=== PATIENT | male | born 1975 | race Caucasian/White ===

== ENCOUNTER 2021-12-29 20:58 | Emergency (ER) | payer BC ==
--- OUTSIDE RECORDS SUMMARY | 2021-12-29 21:03 | XMS REPORT | Continuity of Care Document ---
:1975 Author Organization [facility] t Address [address] [place] [address] Care Team Providers Name Role Phone MAHONEY Attending Clinician Unavailable FREDO Attending Clinician Unavailable Mahoney MD Attending Clinician SAGRARIO Attending Clinician Unavailable CUNNINGHAM Attending Clinician Unavailable Cunningham OD Attending Clinician Doctor Unassigned, Name Attending Clinician Unavailable 2, Lab Attending Clinician Unavailable Fredo RD Attending Clinician RAMSES HAM Attending Clinician Unavailable Barby BURRELL Attending Clinician Unavailable RAMSES HAM Admitting Clinician Unavailable Payers Payer Name Policy Type Policy Number Effective Date Expiration Date S dexter [facility] [id number] 2017 00:00:00 Problems Condition Condition Condition Status Onset Resolution Last Treating Co mments Source Name Details Category Date Date Treatment Clinician Date Problem No known ASSERTION [facility] Allergies, Adverse Reactions, Alerts Allergy Allergy Status Severity Reaction(s) Onset Inactive Treating Comm ents Source Name Type Date Date Clinician NO KNOWN Drug Active Univers ALLERGIE Class ity of [facility] Social History Social Habit Start Date Stop Date Quantity Comments Source Sex Assigned At [facility] Exposure to Not sure University of SARS-CoV-2 [facility] (event) Branch Alcohol intake 2020-07-03 2020-07-03 Current drinker Unive rsity of 00:00:00 00:00:00 of alcohol [facility] (finding) Branch Smoking Status Start Date Stop Date Source Unknown if ever smoked [facility] Former smoker 2020-07-03 00:00:00 2020-07-03 00:00:00 [facility] Medical Branch Medications Ordered Filled Start Stop Current Ordering Indication Dosage Frequency Signature Comments Components Source Medication Medication Date Date Medication? Clinician (SIG) Name Name insulin 2019-11 Yes [id number] 40U inject 40 U nivers degludec 0-14 Units ity of ([place] skin every Medi emilie U-200) 200 morning. Branc h unit/mL (3 mL) InPn insulin 2019-11 Yes [id number] 5U inject Univ ers lispro 100 0-14 5-10 Units ity of unit/mL pen 00:00: [place] the [place] injector 00 skin 3 Medical (three) Branch times daily before meals. metFORMIN 2019-11 Yes [id number] 1000mg Take 1 Univers 1,000 mg 0-14 tablet by ity of tablet 00:00: mouth 2 [place] (two) Medical times Branch daily with meals. FREESTYLE 2019-11 Yes [id number] 1{each} 1 Each Univers VÍCTOR 2 0-14 every 14 ity of SENSOR Kit 00:00: ([place]teen) [place] days. [place] flash 2019-11 Yes [id number] 1{each} 1 Each Uni vers glucose 0-14 daily. ity of scanning 00:00: [place] reader 00 Medical ([facility] Branch VÍCTOR 2 READER) Misc insulin 2019-11 Yes [id number] 40U inject 40 U nivers degludec 0-14 Units ity of ([place]LE[place] skin every Medi emilie U-200) 200 morning. Branc h unit/mL (3 mL) InPn insulin 2019-11 Yes [id number] 5U inject Univ ers lispro 100 0-14 5-10 Units ity of unit/mL pen 00:00: under the [place] injector 00 skin 3 Medical (three) Branch times daily before meals. metFORMIN 2019-11 Yes [id number] 1000mg Take 1 Univers 1,000 mg 0-14 tablet by ity of tablet 00:00: mouth 2 (two) Medical times Branch daily with meals. FREESTYLE 2019-11 Yes [id number] 1{each} 1 Each Univers VÍCTOR 2 0-14 every 14 ity of SENSOR Kit 00:00: ([place]teen) [place] days. [place] flash 2020- Yes [id number] 1{each} 1 Each Uni vers glucose 0-14 daily. ity of scanning 00:00: [place] reader 00 Medical (FREESTYLE Branch VÍCTOR 2 READER) Misc Fenofibrate 2020-0 Yes 1{tbl} Take 1 Un kay 160 mg 9-16 tablet by ity of tablet 00:00: mouth [place] 00 daily. Medical Branch Fenofibrate 2020-0 Yes 1{tbl} Take 1 Un kay 160 mg 9-16 tablet by ity of tablet 00:00: mouth [place] 00 daily. Medical Branch insulin NPH 2019-0 2020- No 40U inject 40 Univers and regular 6-17 06-17 Units ity of human 70-30 17:21: 00:00 under the [place] 100 unit/mL 09 :00 skin every Me dical (70-30) morning Branch injection and evening. insulin NPH 2019-0 2020- No 40U inject 40 Univers and regular 6-17 06-17 Units ity of human 70-30 17:21: 00:00 under the [place] 100 unit/mL 09 :00 skin every Me dical (70-30) morning Branch injection and evening. insulin NPH 2019-0 2020- No 40U inject 40 Univers and regular 6-17 06-17 Units ity of human 70-30 17:21: 00:00 under the [place] [employer] 100 unit/mL 09 :00 skin every Me dical (70-30) morning Branch injection and evening. insulin 2019-0 Yes [id number] 40U inject 40 U nivers degludec 6-17 Units ity of ([place] 00:[place]: [place] FLEXT[place] skin every Medi emilie U-200) 200 morning. Branc h unit/mL (3 mL) InPn insulin 2019-0 Yes [id number] 5U inject Univ ers lispro 100 6-17 5-10 Units ity of unit/mL pen 00:00: under the [place] injector 00 skin 3 Medical (three) Branch times daily before meals. flash 2020-0 Yes [id number] 1{kit} 1 Kit Unive rs glucose 6-17 every 14 ity of sensor 00:00: (fourteen) [place] (FREESTYLE 00 days. Medical VÍCTOR 14 Branch DAY SENSOR) Kit flash 2020-0 Yes [id number] 1{each} 1 Each Uni vers glucose 6-17 daily. ity of scanning 00:00: [place] reader 00 Medical (FREESTYLE Branch VÍCTOR 14 DAY READER) Misc insulin 2020-0 Yes [id number] 40U inject 40 U nivers degludec 6-17 Units ity of ([place]: [place] FLEXT[place] skin every Medi emilie U-200) 200 morning. Branc h unit/mL (3 mL) InPn insulin 2020-0 Yes [id number] 5U inject Univ ers lispro 100 6-17 5-10 Units ity of unit/mL pen 00:00: under the [place] injector 00 skin 3 Medical (three) Branch times daily before meals. flash 2020-0 Yes [id number] 1{kit} 1 Kit Unive rs glucose 6-17 every 14 ity of sensor 00:00: (fourteen) [place] (FREESTYLE 00 days. Medical VÍCTOR 14 Branch DAY SENSOR) Kit flash 2020-0 Yes [id number] 1{each} 1 Each Uni vers glucose 6-17 daily. ity of scanning 00:00: [place] reader 00 Medical (FREESTYLE Branch VÍCTOR 14 DAY READER) Misc insulin 2020-0 Yes [id number] 40U inject 40 U nivers degludec 6-17 Units ity of ([place] 00:[place]: [place] FLEXT[place] skin every Medi emilie U-200) 200 morning. Branc h unit/mL (3 mL) InPn insulin 2020-0 Yes [id number] 5U inject Univ ers lispro 100 6-17 5-10 Units ity of unit/mL pen 00:00: under the [place] injector 00 skin 3 Medical (three) Branch times daily before meals. flash 2020-0 Yes [id number] 1{kit} 1 Kit Unive rs glucose 6-17 every 14 ity of sensor 00:00: (fourteen) (FREESTYLE 00 days. Medical VÍCTOR 14 Branch DAY SENSOR) Kit flash 2020-0 Yes [id number] 1{each} 1 Each Uni vers glucose 6-17 daily. ity of scanning 00:00: [place] reader 00 Medical (FREESTYLE Branch VÍCTOR 14 DAY READER) Misc insulin 2020-0 Yes [id number] 40U inject 40 U nivers degludec 6-17 Units ity of ([place] 00:[place]: [place] FLEXT[place] skin every Medi emilie U-200) 200 morning. Branc h unit/mL (3 mL) InPn insulin 2020-0 Yes [id number] 5U inject Univ ers lispro 100 6-17 5-10 Units ity of unit/mL pen 00:00: under the [place] injector 00 skin 3 Medical (three) Branch times daily before meals. flash 2020-0 Yes [id number] 1{kit} 1 Kit Unive rs glucose 6-17 every 14 ity of sensor 00:00: () (FREESTYLE 00 days. Medical VÍCTOR 14 Branch DAY SENSOR) Kit flash 2020-0 Yes [id number] 1{each} 1 Each Uni vers glucose 6-17 daily. ity of scanning 00:00: [place] reader 00 Medical (FREESTYLE Branch VÍCTOR 14 DAY READER) Misc insulin 2020-0 Yes [id number] 40U inject 40 U nivers degludec 6-17 Units ity of ([place]ES[place] 00:00: [place] FLEXTOU[place] skin every Medi emilie U-200) 200 morning. Branc h unit/mL (3 mL) InPn insulin 2020-0 Yes [id number] 5U inject Univ ers lispro 100 6-17 5-10 Units ity of unit/mL pen 00:00: under the [place] injector 00 skin 3 Medical (three) Branch times daily before meals. flash 2020-0 Yes [id number] 1{kit} 1 Kit Unive rs glucose 6-17 every 14 ity of sensor 00:00: () (FREESTYLE 00 days. Medical VÍCTOR 14 Branch DAY SENSOR) Kit flash 2020-0 Yes [id number] 1{each} 1 Each Uni vers glucose 6-17 daily. ity of scanning 00:00: [place] reader 00 Medical (FREESTYLE Branch VÍCTOR 14 DAY READER) Misc insulin 2020-0 Yes [id number] 40U inject 40 U nivers degludec 6-17 Units ity of (TRESIBA 00:[place]: [place]LE[place] 00 skin every Medi emilie U-200) 200 morning. Branc h unit/mL (3 mL) InPn insulin 2020-0 Yes [id number] 5U inject Univ ers lispro 100 6-17 5-10 Units ity of unit/mL pen 00:00: under the [place] injector 00 skin 3 Medical (three) Branch times daily before meals. insulin 2020-0 Yes [id number] 40U inject 40 U nivers degludec 6-17 Units ity of (TRESIBA 00:00: [place]LE[place] 00 skin every Medi emilie U-200) 200 morning. Branc h unit/mL (3 mL) InPn flash 2020-0 Yes [id number] 1{kit} 1 Kit Unive rs glucose 6-17 every 14 ity of sensor 00:00: (fourteen) [place] (FREESTYLE 00 days. Medical VÍCTOR 14 Branch DAY SENSOR) Kit flash 2020-0 Yes [id number] 1{each} 1 Each Uni vers glucose 6-17 daily. ity of scanning 00:00: [place] reader 00 Medical (FREESTYLE Branch VÍCTOR 14 DAY READER) [facility] insulin 2020-0 Yes [id number] 5U inject Univ ers lispro 100 6-17 5-10 Units ity of unit/mL pen 00:00: under the [place] injector 00 skin 3 Medical (three) Branch times daily before meals. insulin 2020-0 Yes [id number] 40U inject 40 U nivers degludec 6-17 Units ity of (TRESIBA 00:00: [place] FLEXTOU[place] 00 skin every Medi emilie U-200) 200 morning. Branc h unit/mL (3 mL) InPn insulin 2020-0 Yes [id number] 5U inject Univ ers lispro 100 6-17 5-10 Units ity of unit/mL pen 00:00: under the [place] injector 00 skin 3 Medical (three) Branch times daily before meals. flash 2020-0 Yes [id number] 1{kit} 1 Kit Unive rs glucose 6-17 every 14 ity of sensor 00:00: (fourteen) [place] (FREESTYLE 00 days. Medical VÍCTOR 14 Branch DAY SENSOR) Kit flash 2020-0 Yes [id number] 1{each} 1 Each Uni vers glucose 6-17 daily. ity of scanning 00:00: [place] reader 00 Medical (FREESTYLE Branch VÍCTOR 14 DAY READER) Misc flash 2020-0 Yes [id number] 1{kit} 1 Kit Unive rs glucose 6-17 every 14 ity of sensor 00:00: (fourteen) [place] (FREESTYLE 00 days. Medical VÍCTOR 14 Branch DAY SENSOR) Kit flash 2020-0 Yes [id number] 1{each} 1 Each Uni vers glucose 6-17 daily. ity of scanning 00:00: [place] reader 00 Medical (FREESTYLE Branch VÍCTOR 14 DAY READER) Misc insulin 2020-0 Yes [id number] 40U inject 40 U nivers degludec 6-17 Units ity of (TRESIBA 00:00: [place] FLEXTOUCH 00 skin every Medi emilie U-200) 200 morning. Branc h unit/mL (3 mL) InPn insulin 2020-0 Yes [id number] 5U inject Univ ers lispro 100 6-17 5-10 Units ity of unit/mL pen 00:00: under the [place] injector 00 skin 3 Medical (three) Branch times daily before meals. flash 2020-0 Yes [id number] 1{kit} 1 Kit Unive rs glucose 6-17 every 14 ity of sensor 00:00: () [place] (FREESTYLE . Medical VÍCTOR 14 Branch DAY SENSOR) Kit flash 2020-0 Yes [id number] 1{each} 1 Each Uni vers glucose 6-17 daily. ity of scanning 00:00: [place] reader 00 Medical (FREESTYLE Branch VÍCTOR 14 DAY READER) Misc insulin 2020-0 Yes [id number] 40U inject 40 U nivers degludec 6-17 Units ity of (TRESIBA 00:00: [place] FLEXTOUCH 00 skin every Medi emilie U-200) 200 morning. Branc h unit/mL (3 mL) InPn insulin 2020-0 Yes [id number] 5U inject Univ ers lispro 100 6-17 5-10 Units ity of unit/mL pen 00:00: under the [place] injector 00 skin 3 Medical (three) Branch times daily before meals. flash 2020-0 Yes [id number] 1{kit} 1 Kit Unive rs glucose 6-17 every 14 ity of sensor 00:00: () [place] (FREESTYLE 00 days. Medical VÍCTOR 14 Branch DAY SENSOR) Kit flash 2020-0 Yes [id number] 1{each} 1 Each Uni vers glucose 6-17 daily. ity of scanning 00:00: [place] reader 00 Medical (FREESTYLE Branch VÍCTOR 14 DAY READER) Misc insulin 2020-0 Yes [id number] 40U inject 40 U nivers degludec 6-17 Units ity of (TRESIBA 00:00: [place] FLEXTOU[place] 00 skin every Medi emilie U-200) 200 morning. Branc h unit/mL (3 mL) InPn insulin 2020-0 Yes [id number] 5U inject Univ ers lispro 100 6-17 5-10 Units ity of unit/mL pen 00:00: under the [place] injector 00 skin 3 Medical (three) Branch times daily before meals. flash 2020-0 Yes [id number] 1{kit} 1 Kit Unive rs glucose 6-17 every 14 ity of sensor 00:00: (fourteen) (FREESTYLE 00 days. Medical VÍCTOR 14 Branch DAY SENSOR) Kit flash 2020-0 Yes [id number] 1{each} 1 Each Uni vers glucose 6-17 daily. ity of scanning 00:00: [place] reader 00 Medical (FREESTYLE Branch VÍCTOR 14 DAY READER) Misc insulin 2020-0 Yes [id number] 40U inject 40 U nivers degludec 6-17 Units ity of (TRES[place]A 00:00: [place] FLEXTOUCH 00 skin every Medi emilie U-200) 200 morning. Branc h unit/mL (3 mL) InPn insulin 2020-0 Yes [id number] 5U inject Univ ers lispro 100 6-17 5-10 Units ity of unit/mL pen 00:00: under the [place] injector 00 skin 3 Medical (three) Branch times daily before meals. flash 2020-0 Yes [id number] 1{kit} 1 Kit Unive rs glucose 6-17 every 14 ity of sensor 00:00: (fourteen) (FREESTYLE 00 days. Medical VÍCTOR 14 Branch DAY SENSOR) Kit flash 2020-0 Yes [id number] 1{each} 1 Each Uni vers glucose 6-17 daily. ity of scanning 00:00: [place] reader 00 Medical (FREESTYLE Branch VÍCTOR 14 DAY READER) Misc insulin 2020-0 2020- No [id number] 40U inject 40 Univers degludec 6-17 10-14 Units ity of (TRESIBA 00:00: 00:00 under the [place] as FLEXTOUCH 00 :00 skin every Medi emilie U-200) 200 morning. Branc h unit/mL (3 mL) InPn insulin 2020-0 2020- No [id number] 5U inject Uni vers lispro 100 6-17 10-14 5-10 Units it y of unit/mL pen 00:00: 00:00 under the [place] injector 00 :00 skin 3 Medical (three) Branch times daily before meals. flash 2019- 2020- No [id number] 1{kit} 1 Kit Univ ers glucose 6-17 10-14 every 14 ity of sensor 00:00: [place] ([place]teen[place] (FREEST[place] 00 :00 days. Medical VÍCTOR 14 Branch DAY SENSOR) Kit flash 2019-0 2020- No [id number] 1{each} 1 Each Un kay glucose 6-17 10-14 daily. ity of scanning 00:00: 00:00 [place] reader 00 :00 Medical (FREESTYLE Branch VÍCTOR 14 DAY READER) [place] insulin 2020-0 2020- No [id number] 40U inject 40 Univers degludec 6-17 10-14 Units ity of (TRESIBA 00:00: 00:00 under the [place] as FLEXTOUCH 00 :00 skin every Medi emilie U-200) 200 morning. Branc h unit/mL (3 mL) InPn insulin 2019-0 2020- No [id number] 5U inject Uni vers lispro 100 6-17 10-14 5-10 Units it y of unit/mL pen 00:00: 00:00 under the [place] injector 00 :00 skin 3 Medical (three) Branch times daily before meals. flash 2019- 2020- No [id number] 1{kit} 1 Kit Univ ers glucose 6-17 10-14 every 14 ity of sensor 00:00: 00:[place] ([place]teen[place] (FREESTYLE 00 :00 days. Medical VÍCTOR 14 Branch DAY SENSOR) Kit flash 2020-0 2020- No [id number] 1{each} 1 Each Un kay glucose 6-17 10-14 daily. ity of scanning 00:00: 00:00 [place] reader 00 :00 Medical (FREESTYLE Branch VÍCTOR 14 DAY READER) Misc clopidogreL 2020-0 Yes Univer s 75 mg 6-07 ity of tablet 00:00: [place] 00 Medical Branch clopidogreL 2020-0 Yes Univer s 75 mg 6-07 ity of tablet 00:00: [place] 00 Medical Branch clopidogreL 2020-0 Yes Univer s 75 mg 6-07 ity of tablet 00:00: [place] [address] Medical Branch clopidogreL 2020-0 Yes Univer s 75 mg 6-07 ity of tablet 00:00: [place] [address] Medical Branch clopidogreL 2020-0 Yes Univer s 75 mg 6-07 ity of tablet 00:00: [place] [address] Medical Branch clopidogreL 2020-0 Yes Univer s 75 mg 6-07 ity of tablet 00:00: [place] [address] Medical Branch clopidogreL 2020-0 Yes Univer s 75 mg 6-07 ity of tablet 00:00: [place] [address] Medical Branch clopidogreL 2020-0 Yes Univer s 75 mg 6-07 ity of tablet 00:00: [place] [address] Medical Branch clopidogreL 2020-0 Yes Univer s 75 mg 6-07 ity of tablet 00:00: [place] [address] Medical Branch clopidogreL 2020-0 Yes Univer s 75 mg 6-07 ity of tablet 00:00: [place] [address] Medical Branch clopidogreL 2020-0 Yes Univer s 75 mg 6-07 ity of tablet 00:00: [place] [address] Medical Branch clopidogreL 2020-0 Yes Univer s 75 mg 6-07 ity of tablet 00:00: [place] [address] Medical Branch clopidogreL 2020-0 Yes Univer s 75 mg 6-07 ity of tablet 00:00: [place] [address] Medical Branch clopidogreL 2020-0 Yes Univer s 75 mg 6-07 ity of tablet 00:00: [place] [address] Medical Branch metoprolol 2020-0 Yes TAKE 1 2 Uni vers tartrate 25 5-22 (ONE HALF) it y of mg tablet 00:00: TABLET BY as MOUTH Medical EVERY 12 Branch HOURS FOR 30 DAYS metoprolol 2020-0 Yes TAKE 1 2 Uni vers tartrate 25 5-22 (ONE HALF) it y of mg tablet 00:00: TABLET BY [place] as MOUTH Medical EVERY 12 Branch HOURS FOR 30 DAYS metoprolol 2020-0 Yes TAKE 1 2 Uni vers tartrate 25 5-22 (ONE HALF) it y of mg tablet 00:00: TABLET BY [place] as MOUTH Medical EVERY 12 Branch HOURS FOR 30 DAYS metoprolol 2020-0 Yes TAKE 1 2 Uni vers tartrate 25 5-22 (ONE HALF) it y of mg tablet 00:00: TABLET BY as MOUTH Medical EVERY 12 Branch HOURS FOR 30 DAYS metoprolol 2020-0 Yes TAKE 1 2 Uni vers tartrate 25 5-22 (ONE HALF) it y of mg tablet 00:00: TABLET BY as MOUTH Medical EVERY 12 Branch HOURS FOR 30 DAYS metoprolol 2020-0 Yes TAKE 1 2 Uni vers tartrate 25 5-22 (ONE HALF) it y of mg tablet 00:00: TABLET BY as MOUTH Medical EVERY 12 Branch HOURS FOR 30 DAYS metoprolol 2020-0 Yes TAKE 1 2 Uni vers tartrate 25 5-22 (ONE HALF) it y of mg tablet 00:00: TABLET BY as MOUTH Medical EVERY 12 Branch HOURS FOR 30 DAYS metoprolol 2020-0 Yes TAKE 1 2 Uni vers tartrate 25 5-22 (ONE HALF) it y of mg tablet 00:00: TABLET BY as MOUTH Medical EVERY 12 Branch HOURS FOR 30 DAYS metoprolol 2020-0 Yes TAKE 1 2 Uni vers tartrate 25 5-22 (ONE HALF) it y of mg tablet 00:00: TABLET BY as MOUTH Medical EVERY 12 Branch HOURS FOR 30 DAYS metoprolol 2020-0 Yes TAKE 1 2 Uni vers tartrate 25 5-22 (ONE HALF) it y of mg tablet 00:00: TABLET BY as MOUTH Medical EVERY 12 Branch HOURS FOR 30 DAYS metoprolol 2020-0 Yes TAKE 1 2 Uni vers tartrate 25 5-22 (ONE HALF) it y of mg tablet 00:00: TABLET BY as MOUTH Medical EVERY 12 Branch HOURS FOR 30 DAYS metoprolol 2020-0 Yes TAKE 1 2 Uni vers tartrate 25 5-22 (ONE HALF) it y of mg tablet 00:00: TABLET BY as MOUTH Medical EVERY 12 Branch HOURS FOR 30 DAYS metoprolol 2020-0 Yes TAKE 1 2 Uni vers tartrate 25 5-22 (ONE HALF) it y of mg tablet 00:00: TABLET BY as MOUTH Medical EVERY 12 Branch HOURS FOR 30 DAYS metoprolol 2020-0 Yes TAKE 1 2 Uni vers tartrate 25 5-22 (ONE HALF) it y of mg tablet 00:00: TABLET BY as MOUTH Medical EVERY 12 Branch HOURS FOR 30 DAYS SYNJARDY 2019-0 Yes 1{tbl} Take 1 Unive rs 12.5-1,000 5-18 tablet by ity of mg Tab 00:00: mouth 2 (two) Medical times Branch daily. omeprazole 2020-0 Yes TAKE 1 Unive rs 20 mg 5-18 CAPSULE BY ity of capsule 00:00: MOUTH [place]CE [place] 00 DAILY DO Medical NOT CRUSH Branch CAPSULE SYNJARDY 2020-0 Yes 1{tbl} Take 1 Unive rs 12.5-1,000 5-18 tablet by ity of mg Tab 00:00: mouth 2 (two) Medical times Branch daily. SYNJARDY 2020-0 Yes 1{tbl} Take 1 Unive rs 12.5-1,000 5-18 tablet by ity of mg Tab 00:00: mouth 2 (two) Medical times Branch daily. omeprazole 2020-0 Yes TAKE 1 Unive rs 20 mg 5-18 CAPSULE BY ity of capsule 00:00: MOUTH ONCE [place] 00 DAILY DO Medical NOT CRUSH Branch CAPSULE SYNJARDY 2020-0 Yes 1{tbl} Take 1 Unive rs 12.5-1,000 5-18 tablet by ity of mg Tab 00:00: mouth 2 (two) Medical times Branch daily. omeprazole 2020-0 Yes TAKE 1 Unive rs 20 mg 5-18 CAPSULE BY ity of capsule 00:00: MOUTH ONCE [place] 00 DAILY DO Medical NOT CRUSH Branch CAPSULE SYNJARDY 2020-0 Yes 1{tbl} Take 1 Unive rs 12.5-1,000 5-18 tablet by ity of mg Tab 00:00: mouth 2 (two) Medical times Branch daily. omeprazole 2020-0 Yes TAKE 1 Unive rs 20 mg 5-18 CAPSULE BY ity of capsule 00:00: MOUTH ONCE [place] 00 DAILY DO Medical NOT CRUSH Branch CAPSULE SYNJARDY 2020-0 Yes 1{tbl} Take 1 Unive rs 12.5-1,000 5-18 tablet by ity of mg Tab 00:00: mouth 2 (two) Medical times Branch daily. omeprazole 2020-0 Yes TAKE 1 Unive rs 20 mg 5-18 CAPSULE BY ity of capsule 00:00: MOUTH ONCE [place] 00 DAILY DO Medical NOT CRUSH Branch CAPSULE omeprazole 2020-0 Yes TAKE 1 Unive rs 20 mg 5-18 CAPSULE BY ity of capsule 00:00: MOUTH ONCE [place] 00 DAILY DO Medical NOT CRUSH Branch CAPSULE SYNJARDY 2020-0 Yes 1{tbl} Take 1 Unive rs 12.5-1,000 5-18 tablet by ity of mg Tab 00:00: mouth 2 (two) Medical times Branch daily. omeprazole 2020-0 Yes TAKE 1 Unive rs 20 mg 5-18 CAPSULE BY ity of capsule 00:00: MOUTH ONCE [place] 00 DAILY DO Medical NOT CRUSH Branch CAPSULE SYNJARDY 2020-0 Yes 1{tbl} Take 1 Unive rs 12.5-1,000 5-18 tablet by ity of mg Tab 00:00: mouth 2 (two) Medical times Branch daily. omeprazole 2020-0 Yes TAKE 1 Unive rs 20 mg 5-18 CAPSULE BY ity of capsule 00:00: MOUTH ONCE [place] 00 DAILY DO Medical NOT CRUSH Branch CAPSULE omeprazole 2020-0 Yes TAKE 1 Unive rs 20 mg 5-18 CAPSULE BY ity of capsule 00:00: MOUTH ONCE [place] DAILY DO Medical NOT CRUSH Branch CAPSULE omeprazole 2020-0 Yes TAKE 1 Unive rs 20 mg 5-18 CAPSULE BY ity of capsule 00:00: MOUTH ONCE [place] 00 DAILY DO Medical NOT CRUSH Branch CAPSULE SYNJARDY 2020-0 Yes 1{tbl} Take 1 Unive rs 12.5-1,000 5-18 tablet by ity of mg Tab 00:00: mouth 2 (two) Medical times Branch daily. omeprazole 2020-0 Yes TAKE 1 Unive rs 20 mg 5-18 CAPSULE BY ity of capsule 00:00: MOUTH ONCE [place] 00 DAILY DO Medical NOT CRUSH Branch CAPSULE SYNJARDY 2020-0 Yes 1{tbl} Take 1 Unive rs 12.5-1,000 5-18 tablet by ity of mg Tab 00:00: mouth 2 (two) Medical times Branch daily. omeprazole 2020-0 Yes TAKE 1 Unive rs 20 mg 5-18 CAPSULE BY ity of capsule 00:00: MOUTH ONCE [place] 00 DAILY DO Medical NOT CRUSH Branch CAPSULE SYNJARDY 2020-0 Yes 1{tbl} Take 1 Unive rs 12.5-1,000 5-18 tablet by ity of mg Tab 00:00: mouth 2 (two) Medical times Branch daily. omeprazole 2020-0 Yes TAKE 1 Unive rs 20 mg 5-18 CAPSULE BY ity of capsule 00:00: MOUTH ONCE [place] 00 DAILY DO Medical NOT CRUSH Branch CAPSULE SYNJARDY 2020-0 Yes 1{tbl} Take 1 Unive rs 12.5-1,000 5-18 tablet by ity of mg Tab 00:00: mouth 2 [place] 00 (two) Medical times Branch daily. omeprazole 2020-0 Yes TAKE 1 Unive rs 20 mg 5-18 CAPSULE BY ity of capsule 00:00: MOUTH ONCE [place] 00 DAILY DO Medical NOT CRUSH Branch CAPSULE SYNJARDY 2020-0 2020- No 1{tbl} Take 1 Univ ers 12.5-1,000 5-18 10-14 tablet by ity of mg Tab 00:00: 00:00 mouth 2 [place] 00 :00 (two) Medical times Branch daily. SYNJARDY 2020-0 2020- No 1{tbl} Take 1 Univ ers 12.5-1,000 5-18 10-14 tablet by ity of mg Tab 00:00: 00:00 mouth 2 [place] 00 :00 (two) Medical times Branch daily. tadalafil 5 2020-0 Yes 5mg Take 5 mg U nivers mg tablet 2-27 by mouth. ity o f 00:00: Medical Branch tadalafil 5 2020-0 Yes 5mg Take 5 mg U nivers mg tablet 2-27 by mouth. ity o f 00:00: Medical Branch tadalafil 5 2020-0 Yes 5mg Take 5 mg U nivers mg tablet 2-27 by mouth. ity o f 00:00: Medical Branch tadalafil 5 2020-0 Yes 5mg Take 5 mg U nivers mg tablet 2-27 by mouth. ity o f 00:00: Medical Branch tadalafil 5 2020-0 Yes 5mg Take 5 mg U nivers mg tablet 2-27 by mouth. ity o f 00:00: Medical Branch tadalafil 5 2020-0 Yes 5mg Take 5 mg U nivers mg tablet 2-27 by mouth. ity o f 00:00: Medical Branch tadalafil 5 2020-0 Yes 5mg Take 5 mg U nivers mg tablet 2-27 by mouth. ity o f 00:00: Medical Branch tadalafil 5 2020-0 Yes 5mg Take 5 mg U nivers mg tablet 2-27 by mouth. ity o f 00:00: Medical Branch tadalafil 5 2020-0 Yes 5mg Take 5 mg U nivers mg tablet 2-27 by mouth. ity o f 00:00: Medical Branch tadalafil 5 2020-0 Yes 5mg Take 5 mg U nivers mg tablet 2-27 by mouth. ity o f 00:00: Medical Branch tadalafil 5 2020-0 Yes 5mg Take 5 mg U nivers mg tablet 2-27 by mouth. ity o f 00:00: [place] [facility] tadalafil 5 2020-0 Yes 5mg Take 5 mg U nivers mg tablet 2-27 by mouth. ity o f 00:00: [place] [facility] tadalafil 5 2020-0 Yes 5mg Take 5 mg U nivers mg tablet 2-27 by mouth. ity o f 00:00: [place] [facility] tadalafil 5 2020-0 Yes 5mg Take 5 mg U nivers mg tablet 2-27 by mouth. ity o f 00:00: [place] [facility] aspirin 81 2020-0 Yes 81mg Take 81 mg U nivers mg EC 2-14 by mouth. ity of tablet 00:00: [place] [facility] aspirin 81 2020-0 Yes 81mg Take 81 mg U nivers mg EC 2-14 by mouth. ity of tablet 00:00: [place] [facility] atorvastati 2020-0 Yes 40mg Take 40 mg Univers n 40 mg 2-14 by mouth. ity of tablet 00:00: [facility] levothyroxi 2020-0 Yes 50ug Take 50 Uni vers ne 50 mcg 2-14 mcg by ity of tablet 00:00: mouth [place] [address] every Medical morning. Branch aspirin 81 2020-0 Yes 81mg Take 81 mg U nivers mg EC 2-14 by mouth. ity of tablet 00:00: [facility] atorvastati 2020-0 Yes 40mg Take 40 mg Univers n 40 mg 2-14 by mouth. ity of tablet 00:00: [facility] levothyroxi 2020-0 Yes 50ug Take 50 Uni vers ne 50 mcg 2-14 mcg by ity of tablet 00:00: mouth [place] every Medical morning. Branch atorvastati 2020-0 Yes 40mg Take 40 mg Univers n 40 mg 2-14 by mouth. ity of tablet 00:00: [place] [facility] aspirin 81 2020-0 Yes 81mg Take 81 mg U nivers mg EC 2-14 by mouth. ity of tablet 00:00: [facility] atorvastati 2020-0 Yes 40mg Take 40 mg Univers n 40 mg 2-14 by mouth. ity of tablet 00:00: [facility] levothyroxi 2020-0 Yes 50ug Take 50 Uni vers ne 50 mcg 2-14 mcg by ity of tablet 00:00: mouth [place] [address] every Medical morning. Branch levothyroxi 2020-0 Yes 50ug Take 50 Uni vers ne 50 mcg 2-14 mcg by ity of tablet 00:00: mouth [place] every Medical morning. Branch aspirin 81 2020-0 Yes 81mg Take 81 mg U nivers mg EC 2-14 by mouth. ity of tablet 00:00: [facility] atorvastati 2020-0 Yes 40mg Take 40 mg Univers n 40 mg 2-14 by mouth. ity of tablet 00:00: [facility] levothyroxi 2020-0 Yes 50ug Take 50 Uni vers ne 50 mcg 2-14 mcg by ity of tablet 00:00: mouth [place] every Medical morning. Branch aspirin 81 2020-0 Yes 81mg Take 81 mg U nivers mg EC 2-14 by mouth. ity of tablet 00:00: [facility] atorvastati 2020-0 Yes 40mg Take 40 mg Univers n 40 mg 2-14 by mouth. ity of tablet 00:00: [facility] levothyroxi 2020-0 Yes 50ug Take 50 Uni vers ne 50 mcg 2-14 mcg by ity of tablet 00:00: mouth [place] [address] every Medical morning. Branch aspirin 81 2020-0 Yes 81mg Take 81 mg U nivers mg EC 2-14 by mouth. ity of tablet 00:00: [facility] atorvastati 2020-0 Yes 40mg Take 40 mg Univers n 40 mg 2-14 by mouth. ity of tablet 00:00: [facility] levothyroxi 2020-0 Yes 50ug Take 50 Uni vers ne 50 mcg 2-14 mcg by ity of tablet 00:00: mouth [place] [address] every Medical morning. Branch aspirin 81 2020-0 Yes 81mg Take 81 mg U nivers mg EC 2-14 by mouth. ity of tablet 00:00: [place] [facility] atorvastati 2020-0 Yes 40mg Take 40 mg Univers n 40 mg 2-14 by mouth. ity of tablet 00:00: [place] [facility] levothyroxi 2020-0 Yes 50ug Take 50 Uni vers ne 50 mcg 2-14 mcg by ity of tablet 00:00: mouth [place] every Medical morning. Branch aspirin 81 2020-0 Yes 81mg Take 81 mg U nivers mg EC 2-14 by mouth. ity of tablet 00:00: [facility] atorvastati 2020-0 Yes 40mg Take 40 mg Univers n 40 mg 2-14 by mouth. ity of tablet 00:00: [facility] levothyroxi 2020-0 Yes 50ug Take 50 Uni vers ne 50 mcg 2-14 mcg by ity of tablet 00:00: mouth [place] every Medical morning. Branch aspirin 81 2020-0 Yes 81mg Take 81 mg U nivers mg EC 2-14 by mouth. ity of tablet 00:00: [facility] atorvastati 2020-0 Yes 40mg Take 40 mg Univers n 40 mg 2-14 by mouth. ity of tablet 00:00: [facility] levothyroxi 2020-0 Yes 50ug Take 50 Uni vers ne 50 mcg 2-14 mcg by ity of tablet 00:00: mouth [place] every Medical morning. Branch aspirin 81 2020-0 Yes 81mg Take 81 mg U nivers mg EC 2-14 by mouth. ity of tablet 00:00: [facility] atorvastati 2020-0 Yes 40mg Take 40 mg Univers n 40 mg 2-14 by mouth. ity of tablet 00:00: [facility] levothyroxi 2020-0 Yes 50ug Take 50 Uni vers ne 50 mcg 2-14 mcg by ity of tablet 00:00: mouth [place] [address] every Medical morning. Branch aspirin 81 2020-0 Yes 81mg Take 81 mg U nivers mg EC 2-14 by mouth. ity of tablet 00:00: [facility] atorvastati 2020-0 Yes 40mg Take 40 mg Univers n 40 mg 2-14 by mouth. ity of tablet 00:00: [facility] levothyroxi 2020-0 Yes 50ug Take 50 Uni vers ne 50 mcg 2-14 mcg by ity of tablet 00:00: mouth [place] 00 every Medical morning. Branch aspirin 81 2020-0 Yes 81mg Take 81 mg U nivers mg EC 2-14 by mouth. ity of tablet 00:00: [place] [facility] atorvastati 2020-0 Yes 40mg Take 40 mg Univers n 40 mg 2-14 by mouth. ity of tablet 00:00: [place] [facility] levothyroxi 2020-0 Yes 50ug Take 50 Uni vers ne 50 mcg 2-14 mcg by ity of tablet 00:00: mouth [place] every Medical morning. Branch aspirin 81 2020-0 Yes 81mg Take 81 mg U nivers mg EC 2-14 by mouth. ity of tablet 00:00: [place] 00 [facility] atorvastati 2020-0 Yes 40mg Take 40 mg Univers n 40 mg 2-14 by mouth. ity of tablet 00:00: [facility] levothyroxi 2019-0 Yes 50ug Take 50 Uni vers ne 50 mcg 2-14 mcg by ity of tablet 00:00: mouth [place] every Medical morning. Branch Vital Signs Vital Name Observation Time Observation Value Comments Source Systolic blood 2020-09-04 14:41:00 134 mm[Hg] Univer sity [facility] Diastolic blood 2020-09-04 14:41:00 88 mm[facility]Hg[facility] 2020-09-04 14:35:00 80 /min Universi ty [facility] Body height 2020-09-04 14:35:00 175.3 cm Universi ty [facility] Body weight 2020-09-04 14:35:00 88.905 kg Universi ty [facility] BMI 2020-09-04 14:35:00 28.94 kg/m2 Universi ty [facility] Respiratory rate 2020-06-04 15:38:00 16 /min Univ ersity [facility] Body height 2020-06-04 15:38:00 175.3 cm Universi ty [facility] Body weight 2020-06-04 15:38:00 83.915 kg Universi ty [facility] BMI 2020-06-04 15:38:00 27.32 kg/m2 Universi ty [facility] Systolic blood 2020-06-04 15:38:00 129 mm[Hg] Univer sity [facility] Diastolic blood 2020-06-04 15:38:00 85 mm[Hg] Unive rsity of pressure [facility] Heart rate 2020-06-04 15:38:00 89 /min Universi ty [facility] Systolic blood 2020-05-08 16:44:00 131 mm[Hg] Univer sity of pressure [facility] Diastolic blood 2020-05-08 16:44:00 87 mm[Hg] Unive rsity of pressure [facility] Heart rate 2020-05-08 16:44:00 70 /min Universi [facility] Respiratory rate 2020-05-08 16:44:00 16 /[facility] 2020-05-08 16:44:00 175.3 cm Universi [facility] Body weight 2020-05-08 16:44:00 85.095 kg [facility] BMI 2020-05-08 16:44:00 27.70 kg/m2 [facility] Height 2021-09-24 14:41:12 [facility] Weight Measured 2021-09-24 14:41:12 [facility] Body Temperature 2021-09-24 14:41:12 [facility] Heart Rate 2021-09-24 14:41:12 [facility] Respiratory Rate 2021-09-24 14:41:12 [facility] O2 % BldC Oximetry 2021-09-24 14:41:12 [facility] BP Systolic 2021-09-24 14:41:12 [facility] BP Diastolic 2021-09-24 14:41:12 [facility] BMI (Body Mass 2021-09-24 14:41:12 [facility]) [facility] Procedures Procedure Date / Time Performed Performing Clinician Sour e POCT HEMOGLOBIN A1C 2020-09-04 00:00:00 Soo Mahoney [facility] EXTERNAL PROVIDER 2020-06-17 05:01:00 [facility] 2020-05-21 05:01:00 Doctor Unassigned, No Unive [facility] REPORTS Name Medical [place] POCT HEMOGLOBIN A1C 2020-05-08 00:00:00 Soo Mahoney [facility] XR Chest 1 View 2020-04-11 00:00:00 [facility] EKG 12 Lead in 2020-04-11 00:00:00 [facility] Health Encounters Start End Encounter Admission Attending Care Care Encounter Source Date/Time Date/Time Type Type Clinicians Facility Department ID 2021-01-01 2021-01-01 Outpatient R HUGO [facility] [id number] Univers 08:00:00 08:00:00 SOO [id number] ity [facility] 2021-01-01 2021-01-01 Outpatient R HUGO [facility] [id number] Univers 08:00:00 08:00:00 [facility] 2020-09-12 2020-09-12 Outpatient R FREDO [facility] [id number] Univers 08:00:00 08:00:00 SUSANNA [id number] ity [facility] 2020-09-12 2020-09-12 Outpatient R FREDO [facility] [id number] Univers 08:00:00 08:00:00 [facility] 2020-09-04 2020-09-04 [facility] [id number] Univers 09:22:28 10:19:56 Visit Soo [place] [id number] i ty [facility] [id number] Jeremystephany pinon Professio [phone] Co dical [address] 2020-09-04 2020-09-04 Outpatient R HUGO [facility] [id number] Univers 09:30:00 09:30:00 SOO [id number] ity [facility] 2020-09-04 2020-09-04 Outpatient R HUGO [facility] [id number] Univers 09:30:00 09:30:00 SOO ity [facility] 2020-07-08 2020-07-08 Outpatient R SAGRARIO [facility] [id number] Univers 13:00:00 13:00:00 ZOHRA ity [facility] 2020-07-03 2020-07-03 Outpatient R CHAN [facility] [id number] Univers 09:45:00 09:45:00 LORENA [id number] ity o f [facility] 2020-07-03 2020-07-03 Outpatient R CHAN [facility] [id number] Univers 09:45:00 09:45:00 LORENA ity o jaime [facility] 2020-06-21 2020-06-21 Outpatient R CHAN [facility] [id number] Univers 14:30:00 14:30:00 LORENA [id number] ity o jaime [facility] 2020-06-21 2020-06-21 Outpatient R CHAN [facility] [id number] Univers 14:30:00 14:30:00 LORENA ity o jaime [facility] 2020-06-21 2020-06-21 Office Chan, JOSEIT [id number] Univers 14:14:06 14:29:06 Visit Lorena Y [id number] i ty of [facility] [id number] Jeremy as BANK [phone] [facility]. [address] [place] 2020-06-21 2020-06-21 Office BOOKER Cunningham [id number] 14:14:06 14:29:06 Visit Lorena Y [id number] [facility] [id number] BANK [phone] [facility]. [facility] 2020-06-17 2020-06-17 Orders Doctor JOSEPH [id number] Univers 00:00:00 00:00:00 Only Unassigned, RUMA [id number] ity of [place] [facility] [id number] Jeremy as [phone] [facility] 009 [place] 2020-06-13 2020-06-13 Telephone [facility] [id number] Univers 00:00:00 00:00:00 Soo Paige [id number] i [id number] [phone] Co dical nal [address] [facility] 2020-06-05 2020-06-05 [facility] [id number] Univers 10:00:00 10:00:00 SOO [id number] ity of [facility] 2020-06-05 2020-06-05 Supervisor Dry Cleaning 2, Adc Lab [facility] [id number] Univers 08:53:53 09:08:53 Visit Soo Mahoney [id number] [id number] [phone] [facility] 2020-06-05 2020-06-05 Outpatient R [facility] [id number] Univers 08:45:00 08:45:00 ity of [facility] 2020-06-04 2020-06-04 Office Hugo [facility] [id number] Univers 10:15:12 11:59:30 Visit Soo Paige [id number] i [id number] [phone] [facility] [address] [facility] 2020-06-04 2020-06-04 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 Fredo [facility] [id number] Univers 08:11:31 11:54:43 Visit Susanna Paige [id number] i [id number] [phone] [facility] [address] [facility] 2020-06-04 2020-06-04 Outpatient R FREDO, [facility] [id number] Univers 11:00:00 11:00:00 SUSANNA [id number] ity [facility] 2020-06-04 2020-06-04 Outpatient R FREDO, [facility] [id number] Univers 11:00:00 11:00:00 SUSANNA ity [facility] 2020-05-21 2020-05-21 Orders Doctor JOSEPH [id number] Univers 00:00:00 00:00:00 Only Unassigned, RUMA [id number] [facility] [id number] Jeremy as [phone] [address] 2020-05-08 2020-05-08 Office Hugo [facility] [id number] Univers 11:21:37 12:48:12 Visit Soo Paige [id number] i ty of [place] [id number] Lazarus pinon juanitotonny [phone] Co dical nal [address] [facility] 2020-05-08 2020-05-08 Outpatient Pancho MAHONEY [facility] [id number] Univers 11:30:00 11:30:00 SOO shelton [facility] 2020-04-23 2020-04-28 Inpatient FATOUMATA, [facility] [id number] [facility]HTW 06:03:00 13:30:00 RATNA 2020-04-11 2020-04-11 Departed ER BUSTI, 2.16.840. Shirin [address] N[id number]. 14:03:00 18:15:00 Emergency [place] [id number]. Nikita [address] [facility] 3.4991.3. Health Ctr Reg deonna 5.2 l [facility] 2020-04-11 2020-04-11 Emergency ER Bus, STLSJM STLSM [id number] 14:03:00 14:03:00 [place] -[id number] Jessie [facility] [place] [facility] Results Test Description Test Time Test Comments Results Result Comments Source POCT HEMOGLOBIN A1C TEST 2020-09-04 14:37:00 Test Item Value Reference Range Interpretation Comme nts POCT HBA1C (test code = 4548-4) 9.5 % 4-6 A Lab Interpretation (test code = 91016-5) Abnormal [facility] HEMOGLOBIN A1C [id number] 14:37:00 Test Item Value Reference Range Interpretation Comments POCT HBA1C (test code = 4548-4) 9.5 % 4-6 A Lab Interpretation (test code = Abnormal 95411-6) [facility] HEMOGLOBIN A1C [id number] 18:56:00 Test Item Value Reference Range Interpretation Comments POCT HBA1C (test code = 4548-4) 7.7 % 4-6 A Lab Interpretation (test code = Abnormal 09566-6) [facility] HEMOGLOBIN A1C [id number] 18:56:00 Test Item Value Reference Range Interpretation Comments POCT HBA1C (test code = 4548-4) 7.7 % 4-6 A Lab Interpretation (test code = Abnormal 19194-8) [facility] HEMOGLOBIN A1C [id number] 18:56:00 Test Item Value Reference Range Interpretation Comments POCT HBA1C (test code = 4548-4) 7.7 % 4-6 A Lab Interpretation (test code = Abnormal 32521-4) [facility] 02:58:00 Test Item Value Reference Range Interpretation Comments Accuchek (test code = ACU) 89 mg/dL 70-110 N [id number] 17:11:00 Test Item Value Reference Range Interpretation Comments Chemistry (test Less than < 0.028 code = TROPI-R) 0.010 ng/mL Reference Ra nge 0. 00 - 0.028 ng/mL Negative 0.029 - 0.29 n g/mL Indeterminate Greater or Equa l to 0.3 ng/mL St rongly suggests [facility] Laboratory [id number] 16:49:00denise [facility] Chemistry - BNP, HgbA1c, [id number] 15:00:00 Test Item Value Reference Range Interpretation Comments Chemistry - BNP, HgbA1c, PTHi 34.9 pg/mL 0-100 N (test code = BNP) [id number] 14:59:00 Test Item Value Reference Range Interpretation Comments Chemistry (test Less than < 0.028 code = TROPI-R) 0.010 ng/mL Reference Ra nge 0. 00 - 0.028 ng/mL Negative 0.029 - 0.29 n g/mL Indeterminate Greater or Equa l to 0.3 ng/mL St rongly suggests ME [id number] 14:58:00 Test Item Value Reference Range Interpretation Comments Chemistry (test code 139 mmol/L 136-145 N = NA-T) Chemistry (test code 3.6 mmol/L 3.5-5.1 N = K-T) Chemistry (test code 102 mmol/L 98-107 N = CL) Chemistry (test code 25 mmol/L 22-29 N = CO2) Chemistry (test code 16 mmol/L 10-20 N = ANGP) Chemistry (test code 14 mg/dL 8.9-20.6 N = BUN) Chemistry (test code 1.27 mg/dL 0.7-1.3 N = CREATT) Chemistry (test code 61 Referen ce Range for = EGFRMDRD) Estimated GFR: Great er than 90 mL/min/1.73 m2NOTE:The MDRD equation has no t been validated for u se with theelderly (ove r 70 years of age), women, patientswith se rious comorbid condit ion or persons with ex tremes ofbody size, mu scle mass, or nutrit ional status. Chemistry (test code 152 mg/dL 70-105 H = GLU-T) Chemistry (test code 9.7 mg/dL 7.8-10.44 N = CA) Chemistry (test code 1.1 mg/dL 0.2-1.2 N = TBILI-T) Chemistry (test code 7.9 g/dL 6.0-8.3 N = TP) Chemistry (test code 4.6 g/dL 3.5-5.0 N = ALB) Chemistry (test code 3.3 g/dL 2.4-3.5 N = GLOB) Chemistry (test code 1.4 g/dL 1.2-2.2 N = AG) Chemistry (test code 80 U/L 40-110 N = ALP) Chemistry (test code 28 U/L 5-34 N = AST) Chemistry (test code 35 U/L 8-55 N = ALT) [id number] 14:58:00 Test Item Value Reference Range Interpretation Comments Chemistry (test code = MG) 1.7 mg/dL 1.6-2.6 N [id number] 14:50:00 Test Item Value Reference Range Interpretation Comments Hematology (test code = WBCT) 8.2 thou/uL 4.8-10.8 N Hematology (test code = RBCT) 5.53 mill/uL 4.70-6.10 N Hematology (test code = HGBT) 16.4 g/dL 14.0-18.0 N Hematology (test code = HCTT) 50.5 % 42.0-52.0 N Hematology (test code = MCV) 91.3 fL 78.0-98.0 N Hematology (test code = MCH) 29.7 pg 27.0-31.0 N Hematology (test code = MCHC) 32.5 g/dL 32.0-36.0 N Hematology (test code = RDW) 12.3 % 11.5-14.5 N Hematology (test code = PLTT) 253 thou/uL 130-400 N Hematology (test code = MPV) 6.5 fL 7.4-10.4 L Hematology (test code = %NEUT) 69.2 % 42.0-75.0 N Hematology (test code = %LYMPH) 22.5 % 21.0-51.0 N Hematology (test code = %MONO) 6.1 % 0.0-10.0 N Hematology (test code = %EOS) 1.5 % 0.0-10.0 N Hematology (test code = %BASO) 0.8 % 0.0-1.0 N Hematology (test code = NEUT#) 5.7 thou/uL 1.40-6.50 N Hematology (test code = LYMPH#) 1.8 thou/uL 1.20-3.40 N Hematology (test code = MONO#) 0.5 thou/uL 0.11-0.59 N Hematology (test code = EOS#) 0.1 thou/uL 0.0-0.7 N Hematology (test code = BASO#) 0.1 thou/uL 0.0-0.2 N Laboratory [id number] 14:30:00 Test Item Value Reference Range Interpretation Comments 74259-1 (test code = 74986-3) 3.3 g/dL 2.4-3.5 [facility] [id number] 14:30:00 Test Item Value Reference Range Interpretation Comments 30311-2 (test code = 07331-0) 61 [facility] [id number] 14:30:00 Test Item Value Reference Range Interpretation Comments 2160-0 (test code = 2160-0) 1.27 mg/dL 0.7-1.3 [facility] [id number] 14:30:00 Test Item Value Reference Range Interpretation Comments 5-0 (test code = 5-0) 102 mmol/L 98-107 [facility]2020-05-21 14:30:00 Test Item Value Reference Range Interpretation Comments 8-9 (test code = 2027-9) 25 mmol/L 22-29 [facility]2020-05-21 14:30:00 Test Item Value Reference Range Interpretation Comments 48724-3 (test code = 73400-9) 9.7 mg/dL 7.8-10.44 [facility]2020-05-21 14:30:00 Test Item Value Reference Range Interpretation Comments 3094-0 (test code = 3094-0) 14 mg/dL 8.9-20.6 [id number] 14:30:00 Test Item Value Reference Range Interpretation Comments 1920-8 (test code = 1920-8) 28 U/L 5-34 [facility]2020-05-21 14:30:00 Test Item Value Reference Range Interpretation Comments 47183-8 (test code = 33004-1) 16 mmol/L 10-20 [place] [id number] 14:30:00 Test Item Value Reference Range Interpretation Comments 6768-6 (test code = 6768-6) 80 U/L 40-110 [facility]2020-05-21 14:30:00 Test Item Value Reference Range Interpretation Comments 1759-0 (test code = 1759-0) 1.4 g/dL 1.2-2.2 [facility]2020-05-21 14:30:00 Test Item Value Reference Range Interpretation Comments 99088-3 (test code = 61914-6) 4.6 g/dL 3.5-5.0 [facility]2020-05-21 14:30:00 Test Item Value Reference Range Interpretation Comments 1744-2 (test code = 1744-2) 35 U/L 8-55 [facility]2020-05-21 14:30:00 Test Item Value Reference Range Interpretation Comments 6690-2 (test code = 6690-2) 8.2 thou/uL 4.8-10.8 [facility]2020-05-21 14:30:00 Test Item Value Reference Range Interpretation Comments 788-0 (test code = 788-0) 12.3 % 11.5-14.5 [facility]2020-05-21 14:30:00 Test Item Value Reference Range Interpretation Comments 789-8 (test code = 789-8) 5.53 mill/uL 4.70-6.10 [facility]2020-05-21 14:30:00 Test Item Value Reference Range Interpretation Comments 777-3 (test code = 777-3) 253 thou/uL 130-400 [facility]2020-05-21 14:30:00 Test Item Value Reference Range Interpretation Comments 770-8 (test code = 770-8) 69.2 % 42.0-75.0 [facility]2020-05-21 14:30:00 Test Item Value Reference Range Interpretation Comments 751-8 (test code = 751-8) 5.7 thou/uL 1.40-6.50 [facility]2020-05-21 14:30:00 Test Item Value Reference Range Interpretation Comments 5905-5 (test code = 5905-5) 6.1 % 0.0-10.0 [facility]2020-05-21 14:30:00 Test Item Value Reference Range Interpretation Comments 742-7 (test code = 742-7) 0.5 thou/uL 0.11-0.59 [facility]2020-05-21 14:30:00 Test Item Value Reference Range Interpretation Comments 33314-5 (test code = 86038-0) 6.5 fL 7.4-10.4 L [facility]2020-05-21 14:30:00 Test Item Value Reference Range Interpretation Comments 787-2 (test code = 787-2) 91.3 fL 78.0-98.0 [facility]2020-05-21 14:30:00 Test Item Value Reference Range Interpretation Comments 786-4 (test code = 786-4) 32.5 g/dL 32.0-36.0 [facility]2020-05-21 14:30:00 Test Item Value Reference Range Interpretation Comments 785-6 (test code = 785-6) 29.7 pg 27.0-31.0 [facility]2020-05-21 14:30:00 Test Item Value Reference Range Interpretation Comments 736-9 (test code = 736-9) 22.5 % 21.0-51.0 [place] [id number] 14:30:00 Test Item Value Reference Range Interpretation Comments 731-0 (test code = 731-0) 1.8 thou/uL 1.20-3.40 [facility]2020-05-21 14:30:00 Test Item Value Reference Range Interpretation Comments 718-7 (test code = 718-7) 16.4 g/dL 14.0-18.0 [facility]2020-05-21 14:30:00 Test Item Value Reference Range Interpretation Comments 713-8 (test code = 713-8) 1.5 % 0.0-10.0 [facility]2020-05-21 14:30:00 Test Item Value Reference Range Interpretation Comments 1975-2 (test code = 1975-2) 1.1 mg/dL 0.2-1.2 [facility]2020-05-21 14:30:00 Test Item Value Reference Range Interpretation Comments 711-2 (test code = 711-2) 0.1 thou/uL 0.0-0.7 [place] [id number] 14:30:00 Test Item Value Reference Range Interpretation Comments 706-2 (test code = 706-2) 0.8 % 0.0-1.0 [facility]2020-05-21 14:30:00 Test Item Value Reference Range Interpretation Comments 704-7 (test code = 704-7) 0.1 thou/uL 0.0-0.2 [facility] [id number] 14:30:00 Test Item Value Reference Range Interpretation Comments 2951-2 (test code = 2951-2) 139 mmol/L 136-145 [facility] [id number] 14:30:00 Test Item Value Reference Range Interpretation Comments 2885-2 (test code = 2885-2) 7.9 g/dL 6.0-8.3 [facility] [id number] 14:30:00 Test Item Value Reference Range Interpretation Comments 2823-3 (test code = 2823-3) 3.6 mmol/L 3.5-5.1 [place] [id number] 14:30:00 Test Item Value Reference Range Interpretation Comments [id number] (test code = 31517-7) 1.7 mg/dL 1.6-2.6 [place] [id number] 14:30:00 Test Item Value Reference Range Interpretation Comments [id number] (test code = 2345-7) 152 mg/dL 70-105 [facility] Name: CASIMIRO MADDOX [address] Phys: [place] [address] : 1975 Age: 44 SEX:M [phone] Exam Date: 04/11/20 Status: REG ER Acct: [id number] Loc: [facility] Pt Unit #: [id number] Report #: [id number] CC: EVERTON BURRELL MD IMAGING SERVICES REPORT Order # Category/Exam [id number] RAD/XR Chest 1 View Portable ([id number]): . Results PORTABLE CHEST ONE VIEW: 04/11/20 at 2:47 p.m. HISTORY: Chest pain. FINDINGS: The heart size is normal. The lungs are expanded without focal areas of consolidation, pneumothoraces, or pleural effusions. IMPRESSION: No radiographic evidence of acute cardiopulmonary process. POS: [facility] Reported By: Luiz Cunha MD Electronically Signed Date/Time: 04/11/20 7195 Technologist: Dictated Date/Time: 04/11/20 1442 Transcribed Date/Time: 04/11/20 1442
[2021-12-29] MEDS ORDERED: MORPHINE 4 MG/ML SYR ONE (21:59)
[2021-12-29] MEDS ORDERED: ONDANSETRON 4 MG/2 ML VIAL ONE (21:59)
[2021-12-29] MEDS ORDERED: NA CHLORIDE 0.9% 1,000 ML ONE ×2 (21:59→23:56)
[2021-12-29 22:19] LABS: Urine Blood Trace-lysed (Negative); Urine Glucose 3+ (Negative); Urine Protein Negative (Negative); Urine Specific Gravity <=1.005 (1.005-1.030)
[2021-12-29 22:27] LABS: Hematocrit 44.4 % (39.6-49.0); Lymphocytes % 20.2 % (15.3-44.8); MPV 6.9 fL (7.6-11.3); RBC Red Blood Cell Count 5.16 M/uL (4.33-5.43)
[2021-12-29 22:49] LABS: ALT/SGPT 26 U/L (12-78); Albumin 3.2 g/dL (3.4-5.0); Alkaline Phosphatase 67 U/L (45-117); BUN Blood Urea Nitrogen 26 mg/dL (7-18); Bicarbonate 24 mmol/L (21-32); Bilirubin Direct < 0.1 mg/dL (0-0.2); Bilirubin Total 0.4 mg/dL (0.2-1.0); Lipase 142 U/L (73-393); Protein, Total 7.3 g/dL (6.4-8.2); Sodium Level 131 mmol/L (136-145)
[2021-12-29 22:50] LABS: AST/SGOT 15 U/L (15-37); Glucose Level 525 mg/dL (74-106); Potassium 4.2 mmol/L (3.5-5.1)
[2021-12-29] MEDS ORDERED: INSULIN -REGULAR HUMAN 50 UNIT/0.5 ML ML ONE (23:56)
[2021-12-29 23:59] LABS: Urine Bacteria <20 /HPF (NONE SEEN); Urine RBC <5 /HPF (NONE SEEN)
[2021-12-30] MEDS ORDERED: METOCLOPRAMIDE 10 MG/2mL INJ ONE (01:26)
[2021-12-30] MEDS ORDERED: DICYCLOMINE HCL 10 MG CAP ONE (01:26)
--- NOTE | 2021-12-30 01:43 | ER ---
Nurse's Notes [facility] Name: Jean Verduzco Age: 46 yrs Sex: Male : 1975 Arrival Date: 12/29/2021 Time: 20:59 Bed 27 Private MD: Diagnosis: Epigastric pain;Diabetes mellitus due to underlying condition with hyperglycemia Presentation: 12/29 21:17 Chief complaint: Patient states: Pt arrives to ed ambulatory via pov for c/o abdominal ab2 pain. Pt states, "its been going on for just over a week now, im just too stubborn to come in. It started in the left and has now gone to the right side." Denies n/v/d. Coronavirus screen: Vaccine status: Patient reports being unvaccinated. Client denies travel out of the [place] in the last 14 days. At this time, the client does not indicate any symptoms associated with coronavirus-19. Ebola Screen: Patient negative for fever greater than or equal to 101.5 degrees Fahrenheit, and additional compatible Ebola Virus Disease symptoms Patient denies exposure to infectious person. Patient denies travel to an Ebola-affected area in the 21 days before illness onset. No symptoms or risks identified at this time. Initial Sepsis Screen: Does the patient meet any 2 criteria? No. Patient's initial sepsis screen is negative. Does the patient have a suspected source of infection? No. Patient's initial sepsis screen is negative. Risk Assessment: Do you want to hurt yourself or someone else? Patient reports no desire to harm self or others. Onset of symptoms is unknown. 21:17 Method Of Arrival: Ambulatory ab2 21:17 Acuity: NATHANAEL 3 ab2 Triage Assessment: 21:23 General: Appears in no apparent distress. comfortable, Behavior is calm, cooperative, ab2 appropriate for age. Pain: Complains of pain in abdomen Pain does not radiate. Pain currently is 6 out of 10 on a pain scale. GI: Abdomen is round Reports lower abdominal pain, upper abdominal pain. Historical: - Allergies: 21:21 No Known Allergies; ab2 - PMHx: 21:21 Diabetes mellitus; Coronary atherosclerosis; ab2 - PSHx: 21:21 Coronary artery bypass graft; ab2 - Immunization history:: Adult Immunizations up to date. - Social history:: Smoking status: Patient reports the use of cigarette tobacco products, smokes one pack cigarettes per day. Patient/guardian denies using alcohol, street drugs. Screenin:24 Abuse screen: Denies threats or abuse. Denies injuries from another. Nutritional ld1 screening: No deficits noted. Tuberculosis screening: No symptoms or risk factors identified. Fall Risk None identified. Assessment: 21:24 GI: Abdomen is tender to palpation X 4 quads. ab2 22:24 General: Appears in no apparent distress. comfortable, Behavior is calm, cooperative, ld1 appropriate for age. Pain: Complains of pain in abdomen Pain does not radiate. Pain currently is 8 out of 10 on a pain scale. Quality of pain is described as stabbing, Pain began gradually, Is continuous. Neuro: Level of Consciousness is awake, alert, obeys commands, Oriented to person, place, time, situation. Cardiovascular: Capillary refill < 3 seconds Patient's skin is warm and dry. Rhythm is regular. Respiratory: Airway is patent Respiratory effort is even, unlabored. GI: Abdomen is flat, non-distended, Bowel sounds present X 4 quads. : No signs and/or symptoms were reported regarding the genitourinary system. EENT: No signs and/or symptoms were reported regarding the EENT system. Derm: No signs and/or symptoms reported regarding the dermatologic system. Musculoskeletal: No signs and/or symptoms reported regarding the musculoskeletal system. 12/30 01:33 General: patient given apple juice and a sandwhich. . tw5 02:03 Reassessment: Patient states feeling better. Patient states symptoms have improved. tw5 Pain: Pain currently is 5 out of 10 on a pain scale. Vital Signs: 12/29 21:17 BP 141 / 84; Pulse 90; Resp 16; Temp 98.7; Pulse Ox 97% on R/A; Weight 86.18 kg; Height ab2 5 ft. 9 in. (175.26 cm); Pain 6/10; 22:24 BP 150 / 84; Pulse 81; Resp 18; Pulse Ox 99% on R/A; ld1 23:58 BP 132 / 87; Pulse 74; Resp 18; Pulse Ox 99% on R/A; ld1 12/30 01:34 BP 161 / 94; Pulse 94; Resp 18; Pulse Ox 98% on R/A; tw5 12/29 21:17 Body Mass Index 28.06 (86.18 kg, 175.26 cm) ab2 ED Course: 12/29 20:59 Patient arrived in ED. kc5 21:21 Triage completed. ab2 21:24 Arm band placed on right wrist. ab2 21:33 Derik Pelaez PA is PHCP. cp 21:33 Derik Tellez MD is Attending Physician. cp 22:19 Urine Dipstick-Ancillary Sent. ld1 22:19 Urine Microscopic Only Sent. ld1 22:24 Kate Maurer, RN is Primary Nurse. ld1 22:24 Patient has correct armband on for positive identification. Placed in gown. Bed in low ld1 position. Call light in reach. Side rails up X2. mental retardation aide on. Pulse ox on. NIBP on. Door closed. Noise minimized. Warm blanket given. 22:24 No provider procedures requiring assistance completed. Inserted saline lock: 18 gauge ld1 in left forearm, using aseptic technique. Blood collected. 23:32 CT Abd/Pelvis - IV Contrast Only In Process Unspecified. EDMS 12/30 02:03 IV discontinued, intact, bleeding controlled, No redness/swelling at site. Pressure tw5 dressing applied. Administered Medications: 12/29 22:12 Drug: morphine 4 mg Route: IVP; Site: left forearm; ld12/30 01:40 Follow up: Response: No adverse reaction tw12/29 22:12 Drug: Zofran (Ondansetron) 4 mg Route: IVP; Site: left forearm; ld12/30 01:40 Follow up: Response: No adverse reaction 12/29 22:12 Drug: NS 0.9% 1000 ml Route: IV; Rate: 1 bolus; Site: left forearm; ld12/30 01:39 Follow up: Response: No adverse reaction; IV Status: Completed infusion; IV Intake: tw5 1000ml 12/29 23:58 Drug: NS 0.9% 1000 ml Route: IV; Rate: 1 bolus; Site: left forearm; ld12/30 02:16 Follow up: Response: No adverse reaction; IV Status: Completed infusion; IV Intake: tw5 1000ml 00:00 Drug: Insulin Regular Human 10 units {Co-Signature: ld1 (Kate Maurer RN).} Route: as6 IVP; Site: left forearm; 01:39 Follow up: Response: Blood sugar is lowered 01:41 Drug: Reglan (metoCLOPramide) 10 mg Route: IVP; Site: left forearm; 01:58 Follow up: Response: No adverse reaction 01:41 Drug: Bentyl (dicyclomine) 20 mg Route: PO; 01:58 Follow up: Response: No adverse reaction Intake: 01:39 IV: 1000ml; Total: 1000ml. 02:16 IV: 1000ml; Total: 2000ml. Outcome: 01:42 Discharge ordered by MD. cp 02:03 Discharged to home ambulatory. 02:03 Condition: improved 02:03 Discharge instructions given to patient, Instructed on discharge instructions, follow up and referral plans. medication usage, Demonstrated understanding of instructions, follow-up care, medications, Prescriptions given X 2. 02:16 Patient left the ED. Signatures: Dispatcher [employer] EDMS Derik Pelaez PA PA cp Dibbern, Lauren, RN RN ld1 Natalie Nguyễn tw5 Fer Restrepo RN RN as6 Marily Leal kc5 Og Kyle ab2 Kate Maurer RN ld1
--- NOTE | 2021-12-30 01:43 | EDPHYS ---
Physician Documentation [facility] Name: Jean Verduzco Age: 46 yrs Sex: Male : 1975 Arrival Date: 12/29/2021 Time: 20:59 Bed 27 Private MD: ED Physician Derik Tellez HPI: 12/29 21:45 This 46 yrs old Male presents to ER via Ambulatory with complaints of Abdominal Pain. cp 21:45 The patient presents with abdominal pain in the upper abdomen. cp 21:45 Onset: The symptoms/episode began/occurred 1 week(s) ago. cp 21:45 The symptoms do not radiate. Associated signs and symptoms: Pertinent negatives: chest cp pain, constipation, diarrhea, dysuria, fever, testicular pain, vomiting. 21:45 The symptoms are described as stabbing. cp 21:45 Modifying factors: The symptoms are alleviated by nothing, the symptoms are aggravated cp by nothing. Historical: - Allergies: 21:21 No Known Allergies; ab2 - PMHx: 21:21 Diabetes mellitus; Coronary atherosclerosis; ab2 - PSHx: 21:21 Coronary artery bypass graft; ab2 - Immunization history:: Adult Immunizations up to date. - Social history:: Smoking status: Patient reports the use of cigarette tobacco products, smokes one pack cigarettes per day. Patient/guardian denies using alcohol, street drugs. ROS: 21:50 Constitutional: Negative for body aches, chills, fever, poor PO intake. cp 21:50 Eyes: Negative for injury, pain, redness, and discharge. cp 21:50 ENT: Negative for ear pain, sore throat, difficulty swallowing, difficulty handling secretions. 21:50 Cardiovascular: Negative for chest pain, edema, palpitations. 21:50 Respiratory: Negative for cough, shortness of breath, wheezing. 21:50 Abdomen/GI: Positive for abdominal pain, Negative for vomiting, diarrhea, constipation, anorexia. 21:50 Back: Negative for radiated pain. 21:50 Neuro: Negative for altered mental status, headache, syncope, weakness. 21:50 All other systems are negative. Exam: 21:55 Constitutional: The patient appears in no acute distress, alert, awake, cp non-diaphoretic, non-toxic, well developed, well nourished. 21:55 Head/Face: Normocephalic, atraumatic. cp 21:55 Eyes: Periorbital structures: appear normal, Conjunctiva: normal, no exudate, no injection, Sclera: no appreciated abnormality, Lids and lashes: appear normal, bilaterally. 21:55 ENT: External ear(s): are unremarkable, Nose: is normal, Mouth: Lips: moist, Oral mucosa: moist, Posterior pharynx: Airway: no evidence of obstruction, patent. 21:55 Chest/axilla: Inspection: midline surgical scar. 21:55 Cardiovascular: Rate: normal, Rhythm: regular. 21:55 Respiratory: the patient does not display signs of respiratory distress, Respirations: normal, no use of accessory muscles, no retractions, labored breathing, is not present, Breath sounds: are clear throughout, no decreased breath sounds, no stridor, no wheezing. 21:55 Abdomen/GI: Inspection: abdomen appears normal, Bowel sounds: active, all quadrants, Palpation: soft, in all quadrants, moderate abdominal tenderness, in the epigastric area, rebound tenderness, is not appreciated, involuntary guarding, is not appreciated. 21:55 Back: pain, is absent, ROM is normal. 21:55 Neuro: Orientation: to person, place \T\ time. Mentation: is normal, Motor: moves all fours, strength is normal, Gait: is steady, at a normal pace, without difficulty. Vital Signs: 21:17 BP 141 / 84; Pulse 90; Resp 16; Temp 98.7; Pulse Ox 97% on R/A; Weight 86.18 kg; Height ab2 5 ft. 9 in. (175.26 cm); Pain 6/10; 22:24 BP 150 / 84; Pulse 81; Resp 18; Pulse Ox 99% on R/A; ld1 23:58 BP 132 / 87; Pulse 74; Resp 18; Pulse Ox 99% on R/A; ld1 12/30 01:34 BP 161 / 94; Pulse 94; Resp 18; Pulse Ox 98% on R/A; tw5 12/29 21:17 Body Mass Index 28.06 (86.18 kg, 175.26 cm) ab2 MDM: 12/29 21:35 Patient medically screened. cp 12/30 01:42 Data reviewed: vital signs, nurses notes, lab test result(s), radiologic studies, CT cp scan. 01:42 Counseling: I had a detailed discussion with the patient and/or guardian regarding: the cp historical points, exam findings, and any diagnostic results supporting the discharge/admit diagnosis, lab results, radiology results, the need for outpatient follow up, a family practitioner, to return to the emergency department if symptoms worsen or persist or if there are any questions or concerns that arise at home. Response to treatment: the patient's symptoms have markedly improved after treatment, and as a result, I will discharge patient. Special discussion: Based on the patient's Hx, exam, and Dx evaluation, there is no indication for emergent surgery or inpatient Tx. It is understood by the patient/guardian that if the Sx's persist or worsen they need to return immediately for re-evaluation. 12/29 21:39 Order name: Basic Metabolic Panel; Complete Time: 23:26 12/30 00:53 Interpretation: Normal except: NA 131; GLUC 525; BUN 26; CRE 1.42; GFR 53. 12/29 21:39 Order name: CBC with Diff; Complete Time: 23:26 12/29 21:39 Order name: Hepatic Function; Complete Time: 23:26 12/29 21:39 Order name: Lipase; Complete Time: 23:26 12/29 21:39 Order name: Urine Microscopic Only; Complete Time: 00:53 12/29 22:19 Order name: Urine Dipstick-Ancillary; Complete Time: 23:26 [facility] 12/30 01:43 Interpretation: Normal except: UGLUC 3+; UBLD Trace-lysed. 12/29 22:08 Order name: CT Abd/Pelvis - IV Contrast Only 12/30 01:42 Order name: Glucose, Ancillary Testing EDAL 12/30 02:11 Order name: Glucose, Ancillary Testing EDAL 12/29 21:39 Order name: IV Saline Lock; Complete Time: 22:12 12/29 21:39 Order name: Labs collected and sent; Complete Time: 22:12 12/29 21:39 Order name: Urine Dipstick-Ancillary (obtain specimen); Complete Time: 22:19 12/30 00:53 Order name: Accucheck Blood Glucose; Complete Time: 01:34 cp Administered Medications: 12/29 22:12 Drug: morphine 4 mg Route: IVP; Site: left forearm; ld1 12/30 01:40 Follow up: Response: No adverse reaction 12/29 22:12 Drug: Zofran (Ondansetron) 4 mg Route: IVP; Site: left forearm; ld1 12/30 01:40 Follow up: Response: No adverse reaction 12/29 22:12 Drug: NS 0.9% 1000 ml Route: IV; Rate: 1 bolus; Site: left forearm; ld1 12/30 01:39 Follow up: Response: No adverse reaction; IV Status: Completed infusion; IV Intake: tw5 1000ml 12/29 23:58 Drug: NS 0.9% 1000 ml Route: IV; Rate: 1 bolus; Site: left forearm; ld1 12/30 02:16 Follow up: Response: No adverse reaction; IV Status: Completed infusion; IV Intake: tw5 1000ml 00:00 Drug: Insulin Regular Human 10 units {Co-Signature: ld1 (Kate Maurer RN).} Route: as6 IVP; Site: left forearm; 01:39 Follow up: Response: Blood sugar is lowered 01:41 Drug: Reglan (metoCLOPramide) 10 mg Route: IVP; Site: left forearm; tw5 01:58 Follow up: Response: No adverse reaction 5 01:41 Drug: Bentyl (dicyclomine) 20 mg Route: PO; tw 01:58 Follow up: Response: No adverse reaction tw5 Disposition: 08:00 Co-signature as Attending Physician, Derik Tellez MD I agree with the assessment and kerri plan of care. Disposition Summary: 12/30/21 01:42 Discharge Ordered Location: Home cp Problem: new cp Symptoms: have improved cp Condition: Stable cp Diagnosis - Epigastric pain cp - Diabetes mellitus due to underlying condition with hyperglycemia cp Followup: cp - With: Private Physician - When: 2 - 3 days - Reason: Recheck today's complaints Discharge Instructions: - Discharge Summary Sheet cp - Abdominal Pain, Adult cp - Blood Glucose Monitoring, Adult cp - Diabetes Mellitus and Nutrition, Adult cp - Hyperglycemia cp Forms: - Medication Reconciliation Form cp - Thank You Letter cp - Antibiotic Education cp - Prescription Opioid Use cp Prescriptions: - Reglan 10 mg Oral Tablet - take 1 tablet by ORAL route every 6 hours take 30 minutes before meals and at cp bedtime; 20 tablet; Refills: 0, Product Selection Permitted - dicyclomine 20 mg Oral Tablet - take 1 tablet by ORAL route 4 times per day As needed; 20 tablet; Refills: 0, cp Product Selection Permitted Signatures: Dispatcher [employer] Derik Raygoza MD MD cha Page, Corey, PA PA Kate Molina, NORRIS RN ld1 Natalie Nguyễn tw5 Fer Restrepo RN RN as6 Og Kyle 2 Kate Maurer RN ld1
[2021-12-30 02:22] VITALS: TEMP 98.7
[2021-12-30 02:26] VITALS: BP 161/94; O2SAT 98
--- NOTE | 2021-12-30 14:42 | RAD REPORT ---
EXAM DESCRIPTION: CT - Abdomen Pelvis W Contrast - 12/30/2021 5:24 am CLINICAL HISTORY: The patient is 46 years old and is Male; ABD PAIN TECHNIQUE: Axial computed tomography images of the abdomen and pelvis with intravenous contrast. S agittal and coronal reformatted images were created and reviewed. This CT exam was performed using one or more of the following dose reduction techniques: automated exposure control, adjustment of t he mA and/or kV according to patient size, and/or use of iterative reconstruction technique. COMPARISON: No relevant prior studies available. FINDINGS: LUNG BASES: Unremarkable. No mass. No consolidation. ABDOMEN: LIVER: Unremarkable. No mass. GALLBLADDER AND BILE DUCTS: No calcified stones. No ductal dilation. PANCREAS: No ductal dilation. No mass. SPLEEN: Unremarkable. ADRENALS: Unremarkable. No mass. KIDNEYS AND URETERS: Unremarkable. The kidneys enhance symmetrically. No obstructing renal or ure teral calculus is seen. No hydronephrosis or hydroureter. No perinephric fluid or stranding. STOMACH AND BOWEL: The stomach is distended with food contents. The small bowel is relatively nor mal in caliber. Suggestion of minimal mucosal thickening involving a few small bowel loops in the lef t abdomen is present. Stool is noted throughout the colon. There is no bowel obstruction. PELVIS: APPENDIX: The appendix is normal in caliber without surrounding inflammation. BLADDER: Unremarkable. No mass. REPRODUCTIVE: Unremarkable as visualized. ABDOMEN and PELVIS: INTRAPERITONEAL SPACE: Unremarkable. No free air. No significant fluid collection. BONES/JOINTS: No acute fracture. SOFT TISSUES: There are small bilateral fat containing inguinal hernias. VASCULATURE: Atherosclerosis of the vasculature is present. The vessels are normal in caliber. No abdominal aortic aneurysm. LYMPH NODES: Unremarkable. No enlarged lymph nodes. IMPRESSION: Nonspecific mucosal thickening involving a few small bowel loops within the left upper q uadrant. Findings could be secondary to very mild enteritis. No bowel obstruction. Electronically signed by: Lyubov Erazo MD 12/29/2021 11:44 PM PRINCIPAL STATISTICAL SCIENTIST Due to temporary technical issues with the PACS/Fluency reporting system, reports are being signed by the in house radiologists without review as a courtesy to insure prompt reporting. The interpreting radiologist is fully responsible for the content of the report.
== END 2021-12-30 02:16 | disposition home or self-care (01) ==
LOC: ER 20:58
DX: E11.65 Type 2 diabetes mellitus with hyperglycemia (principal); F17.210 Nicotine dependence, cigarettes, uncomplicated; Z95.1 Presence of aortocoronary bypass graft
CPT/HCPCS: 85025; 80048; 36415; 82947 ×2; 80076; 83690; 74177; Q9967; J2765; J7030 ×2; J2405; 81003; 81015; 96361; 96374; 96375; 99284